=== PATIENT | female | born 1960 | race Asian ===

== ENCOUNTER 2023-10-30 20:10 | Inpatient (IN) | payer OTHER ==
[~2023-10-30] VITALS: Ht 162.6 cm; Wt 59.0 kg
[2023-10-30 21:00] VITALS: BP 142/78; PULSE 73; RESP 18; TEMP 99.1; O2SAT 95
[2023-10-30] MEDS: OxyCODONE HCL 10 MG IR TABLET PO PRN (21:24)
[2023-10-30] MEDS: HEPARIN SODIUM,PORCINE 5,000 UNITS/ML VIAL SQ SCH (21:27)
[2023-10-30] MEDS: DOCUSATE SODIUM 250 MG CAPSULE PO SCH (21:30)
[2023-10-30] MEDS: SENNOSIDES 8.6 MG TABLET PO SCH (21:30)
[2023-10-30] MEDS ORDERED: ONDANSETRON HCL 4 MG TABLET PO PRN (21:45)
[2023-10-30] MEDS ORDERED: ALBUTEROL SULFATE HFA 90 MCG/PUFF 8 GM INHALER IH PRN (21:45)
[2023-10-30] MEDS: GABAPENTIN 300 MG CAPSULE PO SCH (21:47)
[2023-10-30] MEDS: ACETAMINOPHEN 325 MG TABLET PO SCH (21:47)
[2023-10-30] MEDS: METOPROLOL TARTRATE 25 MG TABLET PO SCH (21:48)
[2023-10-30] MEDS: ATORVASTATIN CALCIUM 10 MG TABLET PO SCH (21:48)
[2023-10-30] MEDS: *PATIENT'S OWN MED [ENTER DRUG, DOSE, FREQUENCY IN COMMENTS] CLINICAL ONE (22:30)
[2023-10-31] VITALS (7 sets, daily range): BP systolic 105–116; BP diastolic 56–70; PULSE 67–78; RESP 16–18; TEMP 98.5–99.5; O2SAT 89–98
[2023-10-31] MEDS ORDERED: ACETAMINOPHEN 325 MG TABLET PO ONE
[2023-10-31 07:31] LABS: BASOPHILS % (AUTO) 0.9 % (0.0-2.0); EOSINOPHILS % (AUTO) 5.6 % (1.0-6.0); HEMATOCRIT 30.8 % (36-46); HEMOGLOBIN 10.4 g/dL (12.0-16.0); LYMPHOCYTES % (AUTO) 22.5 % (22.0-44.0); MEAN CORPUSCULAR HEMOGLOBIN 32.6 pg (26.0-34.0); MEAN CORPUSCULAR HGB CONC 33.6 G/dL (31.0-37.0); MEAN CORPUSCULAR VOLUME 97 fL (80-100); MONOCYTES # (AUTO) 0.9 K/uL (0.1-1.0); MONOCYTES % (AUTO) 10.3 % (2.0-9.0); NEUTROPHILS # (AUTO) 5.5 K/uL (1.8-7.7); NEUTROPHILS % (AUTO) 60.7 % (40.0-70.0); PLATELET COUNT (AUTO) 309 K/uL (150-450); RED BLOOD CELL COUNT(AUTO) 3.18 MIL/uL (4.00-5.20)
[2023-10-31 08:33] LABS: ALANINE AMINOTRANSFERASE 25 U/L (12-78); ALBUMIN 2.3 g/dL (3.4-5.0); ALKALINE PHOSPHATASE 110 U/L (46-116); ANION GAP 4 mmol/L (8-16); ASPARTATE AMINOTRANSFERASE 43 U/L (15-37); BILIRUBIN,TOTAL 0.4 mg/dL (0.1-1.0); CALCIUM, TOTAL 8.6 mg/dL (8.8-10.5); CARBON DIOXIDE 35 mmol/L (22-29); CHLORIDE 95 mmol/L (98-107); CREATININE 0.67 mg/dL (0.60-1.30); GLOMERULAR FILTR. RATE CALC > 60 mL/min (>60); GLUCOSE,RANDOM 107 mg/dL (70-110); POTASSIUM 3.3 mmol/L (3.5-5.1); SODIUM SERUM 134 mmol/L (136-145); TOTAL PROTEIN, SERUM 6.8 g/dL (6.4-8.2); UREA NITROGEN, BLOOD 9 mg/dL (7-18)
[2023-10-31] MEDS: HYDROCHLOROTHIAZIDE 25 MG TABLET PO SCH (09:00)
[2023-10-31] MEDS: CYCLOBENZAPRINE HCL 10 MG TABLET PO PRN (09:07)
[2023-10-31] MEDS: AmLODIPine BESYLATE 10 MG TABLET PO SCH (09:09)
[2023-10-31] MEDS: LIDOCAINE 5% TRANSDERMAL PATCH TD SCH (09:09)
[2023-10-31] MEDS: ETHYL ALCOHOL 62% ANTISEPTIC NASAL SANITIZER 0.6 ML AMPUL NASAL SCH (09:10)
[2023-10-31] MEDS: FLUTICASONE PROPIONATE 50 MCG/SPRAY 16 GM NASAL SPRAY NASAL SCH (09:10)
[2023-10-31] MEDS: POTASSIUM CHLORIDE 20 MEQ ER TABLET PO ONE (12:10)
[2023-10-31] MEDS: UBROGEPANT 100 MG PO PRN (13:17)
[2023-10-31] MEDS: -LIDODERM PATCH NOTE- MISC SCH (19:49)
[2023-11-01] MEDS: GuaiFENesin [SUGAR-FREE] 200 MG/10 ML SOLUTION UDCUP PO PRN (00:21)
[2023-11-01 00:42] VITALS: O2SAT 98
[2023-11-01 08:41] LABS: ANION GAP 8 mmol/L (8-16); CALCIUM, TOTAL 8.7 mg/dL (8.8-10.5); CARBON DIOXIDE 29 mmol/L (22-29); CHLORIDE 97 mmol/L (98-107); CREATININE 0.52 mg/dL (0.60-1.30); GLOMERULAR FILTR. RATE CALC > 60 mL/min (>60); GLUCOSE,RANDOM 97 mg/dL (70-110); POTASSIUM 3.9 mmol/L (3.5-5.1); SODIUM SERUM 134 mmol/L (136-145); UREA NITROGEN, BLOOD 8 mg/dL (7-18)
[2023-11-01 08:50] VITALS: BP 141/66; PULSE 73; RESP 18; TEMP 98.4; O2SAT 98
[2023-11-01 19:49] VITALS: BP 117/63; PULSE 73; RESP 18; TEMP 98.3; O2SAT 97
[2023-11-01 21:10] VITALS: BP 123/68; PULSE 68
[2023-11-01] MEDS: MAGNESIUM HYDROXIDE SUSPENSION 30 ML UDCUP PO PRN (21:20)
[2023-11-02 04:31] VITALS: O2SAT 97
[2023-11-02 09:18] VITALS: BP 132/69; PULSE 67; RESP 18; TEMP 98.2; O2SAT 96
[2023-11-02 10:18] VITALS: O2SAT 96
[2023-11-02 20:19] VITALS: BP 129/71; PULSE 70; RESP 18; TEMP 98.1; O2SAT 98
[2023-11-02 20:30] VITALS: BP_SYST 122; BP_SYST 129; BP_DIAS 71; BP_DIAS 72; PULSE 71; RESP 18; TEMP 98.1; O2SAT 98
[2023-11-03] VITALS (7 sets, daily range): BP systolic 112–130; BP diastolic 70–72; PULSE 70–82; RESP 18; TEMP 97.9–98.4; O2SAT 97–99
[2023-11-04 07:21] LABS: ANION GAP 3 mmol/L (8-16); CALCIUM, TOTAL 8.9 mg/dL (8.8-10.5); CARBON DIOXIDE 32 mmol/L (22-29); CHLORIDE 96 mmol/L (98-107); CREATININE 0.62 mg/dL (0.60-1.30); GLOMERULAR FILTR. RATE CALC > 60 mL/min (>60); GLUCOSE,RANDOM 114 mg/dL (70-110); POTASSIUM 3.7 mmol/L (3.5-5.1); SODIUM SERUM 131 mmol/L (136-145); UREA NITROGEN, BLOOD 10 mg/dL (7-18)
[2023-11-04 08:00] VITALS: BP 122/70; PULSE 72; RESP 19; TEMP 97.9; O2SAT 96
[2023-11-04] MEDS: TraMADol HCL 50 MG TABLET PO PRN (13:02)
[2023-11-05] MEDS: CARISOPRODOL 350 MG TABLET PO PRN (02:00)
[2023-11-05 03:21] VITALS: O2SAT 97
[2023-11-05] MEDS ORDERED: GABA-1181 PO (04:41)
[2023-11-05] MEDS ORDERED: ASPI-1450 PO (04:41)
[2023-11-05] MEDS ORDERED: ATOR10TA PO (04:41)
[2023-11-05] MEDS ORDERED: LIDO1ADH83 TP (04:41)
[2023-11-05] MEDS ORDERED: METO25 PO (04:41)
[2023-11-05] MEDS ORDERED: HYDR25TA2 PO (04:41)
[2023-11-05] MEDS ORDERED: AMLO-258 PO (04:41)
[2023-11-05 08:00] VITALS: BP 112/66; PULSE 67; RESP 19; TEMP 98.1; O2SAT 98
[2023-11-05] MEDS: HYDROCHLOROTHIAZIDE 25 MG TABLET PO SCH (08:59)
[2023-11-05] MEDS: ACETAMINOPHEN 325 MG TABLET PO SCH (13:51)
[2023-11-05 20:10] VITALS: BP 122/70; PULSE 77; RESP 18; TEMP 97.8; O2SAT 96
[2023-11-05 21:57] VITALS: O2SAT 96
[2023-11-06 08:00] VITALS: BP 114/65; PULSE 77; RESP 19; TEMP 97.8; O2SAT 97; O2SAT 99
[2023-11-06] MEDS: OxyCODONE HCL 5 MG IR TABLET PO PRN (10:07)
[2023-11-06 20:05] VITALS: BP 136/59; PULSE 78; RESP 18; TEMP 98; O2SAT 98
[2023-11-06 21:50] VITALS: O2SAT 98
[2023-11-07 08:04] LABS: ANION GAP 8 mmol/L (8-16); CARBON DIOXIDE 27 mmol/L (22-29); CHLORIDE 99 mmol/L (98-107); CREATININE 0.69 mg/dL (0.60-1.30); GLOMERULAR FILTR. RATE CALC > 60 mL/min (>60); GLUCOSE,RANDOM 106 mg/dL (70-110); POTASSIUM 4.1 mmol/L (3.5-5.1); SODIUM SERUM 134 mmol/L (136-145); UREA NITROGEN, BLOOD 6 mg/dL (7-18)
[2023-11-07 08:11] VITALS: BP 133/80; PULSE 80; RESP 18; TEMP 97.8; O2SAT 97
[2023-11-07] MEDS ORDERED: ACET325T51 PO (13:33)
[2023-11-07] MEDS ORDERED: LIDO700A30 TD (13:33)
[2023-11-07] MEDS ORDERED: HYDR25TA PO (13:33)
[2023-11-07] MEDS ORDERED: AMLO-258 PO (13:33)
[2023-11-07] MEDS ORDERED: FOLI-130 PO (13:33)
[2023-11-07] MEDS ORDERED: OXYC5 PO (13:33)
[2023-11-07] MEDS ORDERED: GABA-1181 PO (13:33)
[2023-11-07] MEDS ORDERED: DOCU-412 PO (13:33)
[2023-11-07] MEDS ORDERED: SENN-277 PO (13:33)
[2023-11-07] MEDS ORDERED: METO25 PO (13:33)
[2023-11-07] MEDS ORDERED: ASPI-1450 PO (13:33)
[2023-11-07] MEDS ORDERED: ATOR10TA69 PO (13:33)
[2023-11-07] MEDS ORDERED: CARI-493 PO (13:33)
[2023-11-07 19:56] VITALS: BP 117/70; PULSE 97; RESP 18; TEMP 98.3; O2SAT 97
[2023-11-08 00:43] VITALS: O2SAT 97
[2023-11-08 08:00] VITALS: BP 136/90; PULSE 70; RESP 18; TEMP 98.1; O2SAT 100
[2023-11-08] MEDS ORDERED: OXYC5 PO (11:16)
[2023-11-08] MEDS ORDERED: CARI-493 PO ×2 (11:17→11:18)
[2023-11-11] MEDS ORDERED: ASPIRIN 81 MG CHEWABLE TABLET PO SCH (07:30)
== END 2023-11-09 00:39 | disposition home health service (06) | DRG 40 ==
LOC: 2WR 20:26
PROVIDERS: ADMIT Physical Medicine & Rehabilitation; ATTEND Physical Medicine & Rehabilitation
DX: G95.89 Other specified diseases of spinal cord (principal); E46 Unspecified protein-calorie malnutrition; G43.909 Migraine, unspecified, not intractable, without status migrainosus; G82.50 Quadriplegia, unspecified; E87.6 Hypokalemia; I10 Essential (primary) hypertension; K59.03 Drug induced constipation; T40.2X5A Adverse effect of other opioids, initial encounter; E78.00 Pure hypercholesterolemia, unspecified; E87.1 Hypo-osmolality and hyponatremia; Z74.09 Other reduced mobility; J98.4 Other disorders of lung; M54.2 Cervicalgia; M62.830 Muscle spasm of back; R26.9 Unspecified abnormalities of gait and mobility; D64.9 Anemia, unspecified; Z86.11 Personal history of tuberculosis; Z82.49 Family history of ischemic heart disease and other diseases of the circulatory system; Z88.0 Allergy status to penicillin; Y92.89 Other specified places as the place of occurrence of the external cause; Z88.5 Allergy status to narcotic agent; Z91.040 Latex allergy status; Z91.030 Bee allergy status; Z91.048 Other nonmedicinal substance allergy status; Z68.22 Body mass index [BMI] 22.0-22.9, adult
CPT/HCPCS: 80048; 80053; 85025; 87081; 97110; 97116; 97140; 97163; 97166; 97530; 97535; 99366; J1644; Q9967